=== PATIENT | female | born 1995 | race African-American/Black ===

== ENCOUNTER 2020-10-24 19:11 | Emergency (ER) | payer OTHER, BC ==
[2020-10-24 19:24] VITALS: RESP 18; TEMP 99.2
--- NOTE | 2020-10-24 19:55 | ED ---
Back Pain HPI - General Chief Complaint: Back Pain/Injury Stated Complaint: [facility] - Lower back injury Time Seen by Provider: 10/24/20 19:27 Source: patient, RN notes reviewed Mode of arrival: ambulatory Limitations: no limitations - History of Present Illness Initial Comments: This a 25-year-old female presents emergency Department chief complaint low back pain. Patient states that she was at work yesterday caught her foot in the storm drain states that she pulled, twist her back and states that she had increased pain. Patient does admit that she's had rods and surgery on her back secondary to scoliosis. Patient states she has pain rates her left leg. Denies any bowel bladder incontinence or retention or saddle anesthesia. No lower shunted paresthesias. Patient does admit that she has some dysuria with no other associated symptoms no fevers or chills denies any chance . - Related Data Previous Rx's Medication Instructions Recorded Cephalexin [Keflex] 500 mg PO Q8HR #21 cap 10/24/20 Cyclobenzaprine [Flexeril] 10 mg PO TID PRN #15 tab 10/24/20 Ibuprofen [Motrin] 600 mg PO Q8HR PRN #20 tab 10/24/20 Allergies Allergy/AdvReac Type Severity Reaction Status Date / Time No Known Allergies Allergy Verified 10/24/20 19:22 Review of Systems ROS Statement: Those systems with pertinent positive or pertinent negative responses have been documented in the HPI. ROS Other: All systems not noted in ROS Statement are negative. Past Medical History Past Medical History: No Reported History History of Any Multi-Drug Resistant Organisms: None Reported Additional Past Surgical History / Comment(s): back surgery for scoliosis, Past Psychological History: No Psychological Hx Reported Smoking Status: Never smoker Past Alcohol Use History: None Reported Past Drug Use History: None Reported General Exam Limitations: no limitations General appearance: alert, in no apparent distress Head exam: Present: atraumatic, normocephalic, normal inspection Eye exam: Present: normal appearance, PERRL, EOMI. Absent: scleral icterus, conjunctival injection, periorbital swelling ENT exam: Present: normal exam, normal oropharynx, mucous membranes moist, TM's normal bilaterally Neck exam: Present: normal inspection, full ROM. Absent: tenderness, meningismus, lymphadenopathy Respiratory exam: Present: normal lung sounds bilaterally. Absent: respiratory distress, wheezes, rales, rhonchi, stridor Cardiovascular Exam: Present: regular rate, normal rhythm, normal heart sounds. Absent: systolic murmur, diastolic murmur, rubs, gallop, clicks GI/Abdominal exam: Present: soft, normal bowel sounds. Absent: distended, tenderness, guarding, rebound, rigid Extremities exam: Present: normal inspection, full ROM, normal capillary refill, other (Lower extremity strength equal bilaterally neurovascular intact equal color and equal warmth). Absent: tenderness, pedal edema, joint swelling, calf tenderness Back exam: Present: full ROM, tenderness, paraspinal tenderness. Absent: vertebral tenderness Neurological exam: Present: alert, oriented X3, CN II-XII intact, reflexes normal. Absent: motor sensory deficit Skin exam: Present: warm, dry, intact, normal color. Absent: rash Course Vital Signs 10/24/20 19:19 Temperature 99.2 F Pulse Rate 85 Respiratory 18 Rate Blood Pressure 119/75 O2 Sat by Pulse 98 Oximetry Medical Decision Making - Medical Decision Making X-ray shows no acute findings. Patient has chronic changes related to surgery urinalysis shows evidence of urinary tract infection she is symptomatic. Patient we discharged stable condition return parameters were discussed. Patient has no red flag symptoms. - Lab Data Lab Results 10/24/20 10/24/20 Range/Units 19:47 19:47 Urine Color Yellow Urine Appearance Clear (Clear) Urine pH 6.5 (5.0-8.0) Ur Specific [place] 1.023 (1.001-1.035) Urine Protein Trace H (Negative) Urine Glucose (UA) Negative (Negative) Urine Ketones Negative (Negative) Urine Blood Small H (Negative) Urine Nitrite Negative (Negative) Urine Bilirubin Negative (Negative) Urine Urobilinogen <2.0 (<2.0) mg/dL Ur Leukocyte Esterase Large H (Negative) Urine RBC 9 H (0-5) /hpf Urine WBC 18 H (0-5) /hpf Ur Squamous Epith Cells 2 (0-4) /hpf Urine Bacteria Rare H (None) /hpf Urine Mucus Rare H (None) /hpf Urine HCG, Qual Not Detected (Not Detectd) Disposition Clinical Impression: Strain of lumbar region, UTI (urinary tract infection) Disposition: HOME SELF-CARE Condition: Stable Instructions (If sedation given, give patient instructions): Acute Low Back Pain (ED) Additional Instructions: Please return to the Emergency Department if symptoms worsen or any other concerns. Prescriptions: Cyclobenzaprine [Flexeril] 10 mg PO TID PRN #15 tab PRN Reason: Muscle Spasm Cephalexin [Keflex] 500 mg PO Q8HR #21 cap Ibuprofen [Motrin] 600 mg PO Q8HR PRN #20 tab PRN Reason: Pain Is patient prescribed a controlled substance at d/c from ED?: No Referrals: Luba Franco MD [Primary Care Provider] - 1-2 days Time of Disposition: 20:47
[2020-10-24 19:59] LABS: Appearance,Urine Clear (Clear); Bacteria,Urine Rare /hpf; Bilirubin,Urine Negative (Negative); Blood,Urine Small (Negative); Color,Urine Yellow; Glucose,Urine (UA) Negative (Negative); Ketones,Urine Negative (Negative); Leukocyte Esterase,Urine Large (Negative); Mucus,Urine Rare /hpf; Nitrite,Urine Negative (Negative); PH, Urine 6.5 (5.0-8.0); Protein,Urine Trace (Negative); RBC,Urine 9 /hpf (0-5); Specific Gravity,Urine 1.023 (1.001-1.035); Squamous Epithelial Cell,Urine 2 /hpf (0-4); Urobilinogen,Urine <2.0 mg/dL (<2.0); WBC,Urine 18 /hpf (0-5)
--- NOTE | 2020-10-24 20:27 | XR ---
EXAMINATION TYPE: XR lumbar spine 2 or 3V DATE OF EXAM: 10/24/2020 CLINICAL HISTORY: Low back pain after injury yesterday. History of scoliosis surgery 2001. TECHNIQUE: Frontal and lateral images of the lumbar spine are obtained. COMPARISON: Prior scoliosis survey December 11, 2010 FINDINGS: There are 5 lumbar type vertebral bodies redemonstrated. Improved alignment on current shiraz dy. Partial visualization of posterior interpedicular rods and screws involving T12-L3 vertebra infer iorly. Mild to moderate disc space narrowing at these levels. Vertebral body heights and disc space h eights are maintained at L3 level inferiorly. No acute fracture or dislocation. IMPRESSION: No acute displaced fracture clearly seen in the lumbar spine.
[2020-10-24 21:02] VITALS: BP 121/79; PULSE 75
== END 2020-10-24 21:02 | disposition home or self-care (01) ==
LOC: EC 19:11
DX: S39.012A Strain of muscle, fascia and tendon of lower back, initial encounter (principal); N39.0 Urinary tract infection, site not specified; X58.XXXA Exposure to other specified factors, initial encounter
CPT/HCPCS: 72100; 81001; 81025; 87086; 99283

== ENCOUNTER → 2020-12-15 | Outpatient (CLI) | payer BC ==
[2020-12-15 23:31] LABS: Basophils # (A) 0.02 X 10*3/uL (0.00-0.10); Basophils % (A) 0.5 %; Eosinophils # (A) 0.13 X 10*3/uL (0.04-0.35); Eosinophils % (A) 3.4 %; HCT 37.4 % (37.2-46.3); Lymphocytes # (A) 1.45 X 10*3/uL (0.90-5.00); Lymphocytes % (A) 38.1 %; MCH 31.4 pg (27.0-32.0); MCHC 32.1 g/dL (32.0-37.0); MCV 97.9 fL (80.0-97.0); Monocytes # (A) 0.54 X 10*3/uL (0.20-1.00); Monocytes % (A) 14.2 %; Neutrophils # (A) 1.67 X 10*3/uL (1.80-7.70); Neutrophils % (A) 43.8 %; Platelet Count 298 X 10*3/uL (140-440); RBC 3.82 X 10*6/uL (4.10-5.20); RDW 14.8 % (11.5-14.5); WBC 3.81 X 10*3/uL (4.50-10.00)
[2020-12-16 02:39] LABS: African American GFR (CKD) 91.3 (60.0-200.0); Albumin 4.2 g/dL (3.80-4.90); Albumin/Globulin Ratio 1.35 (1.60-3.17); Anion Gap 6.9 mmol/L (4.00-12.00); Calcium 9.1 mg/dL (8.7-10.3); Carbon Dioxide 27.1 mmol/L (21.6-31.8); Chol/HDL Ratio 3.51; Globulin 3.1 g/dL (1.6-3.3); LDL Cholesterol,Calculated 112.6 mg/dL (0.0-131.0); Non-African American GFR(CKD) 78.8 (60.0-200.0); Potassium 4.2 mmol/L (3.5-5.5); Total Bilirubin 0.3 mg/dL (0.3-1.2); Total Protein 7.3 g/dL (6.2-8.2); VLDL Calculation 10.4 mg/dL (5.00-40.00)
== END | disposition home or self-care (01) ==
LOC: LABWHC1 11:08
PROVIDERS: ATTEND Nurse Practitioner Family
DX: Z13.220 Encounter for screening for lipoid disorders (principal); Z13.228 Encounter for screening for other metabolic disorders; Z13.9 Encounter for screening, unspecified; E55.9 Vitamin D deficiency, unspecified; R53.83 Other fatigue
CPT/HCPCS: 36415; 80053; 80061; 82306; 84443; 85025

== ENCOUNTER 2020-12-25 21:04 | Emergency (ER) | payer BC ==
[2020-12-25] MEDS ORDERED: ONDANSETRON ODT 4 MG TAB PO STA (21:58)
[2020-12-25] MEDS ORDERED: ONDANSETRON 4 MG ODT STARTER PACK 2 TAB BTL PO STA (21:58)
--- NOTE | 2020-12-25 22:17 | ED ---
Nausea/Vomiting/Diarrhea HPI - General Chief complaint: Nausea/Vomiting/Diarrhea Stated complaint: Nausea Time Seen by Provider: 12/25/20 21:26 Source: patient Mode of arrival: ambulatory Limitations: no limitations - Related Data Previous Rx's Medication Instructions Recorded Cephalexin [Keflex] 500 mg PO Q8HR #21 cap 10/24/20 Cyclobenzaprine [Flexeril] 10 mg PO TID PRN #15 tab 10/24/20 Ibuprofen [Motrin] 600 mg PO Q8HR PRN #20 tab 10/24/20 Allergies Allergy/AdvReac Type Severity Reaction Status Date / Time No Known Allergies Allergy Verified 12/25/20 21:16 Review of Systems ROS Statement: Those systems with pertinent positive or pertinent negative responses have been documented in the HPI. ROS Other: All systems not noted in ROS Statement are negative. Past Medical History Past Medical History: No Reported History History of Any Multi-Drug Resistant Organisms: None Reported Past Surgical History: Back Surgery Additional Past Surgical History / Comment(s): back surgery for scoliosis, Past Psychological History: Anxiety Smoking Status: Never smoker Past Alcohol Use History: None Reported Past Drug Use History: Marijuana General Exam Limitations: no limitations Course Vital Signs 12/25/20 21:16 Temperature 98.0 F Pulse Rate 80 Respiratory 18 Rate Blood Pressure 110/65 O2 Sat by Pulse 100 Oximetry Medical Decision Making - Lab Data Lab Results 12/25/20 12/25/20 Range/Units 22:05 22:05 Urine Color Yellow Urine Appearance Cloudy H (Clear) Urine pH 6.0 (5.0-8.0) Ur Specific [place] 1.025 (1.001-1.035) Urine Protein Negative (Negative) Urine Glucose (UA) Negative (Negative) Urine Ketones Negative (Negative) Urine Blood Negative (Negative) Urine Nitrite Negative (Negative) Urine Bilirubin Negative (Negative) Urine Urobilinogen <2.0 (<2.0) mg/dL Ur Leukocyte Esterase Small H (Negative) Urine RBC 1 (0-5) /hpf Urine WBC 2 (0-5) /hpf Ur Squamous Epith Cells 10 H (0-4) /hpf Urine Bacteria Rare H (None) /hpf Urine Mucus Rare H (None) /hpf Urine HCG, Qual Not Detected (Not Detectd) Disposition Clinical Impression: Food poisoning, Nausea & vomiting Disposition: HOME SELF-CARE Condition: Good Instructions (If sedation given, give patient instructions): Acute Nausea and Vomiting (ED) Is patient prescribed a controlled substance at d/c from ED?: No Referrals: Luba Franco MD [Primary Care Provider] - 1-2 days
[2020-12-25 22:27] LABS: Appearance,Urine Cloudy (Clear); Bacteria,Urine Rare /hpf; Bilirubin,Urine Negative (Negative); Blood,Urine Negative (Negative); Color,Urine Yellow; Glucose,Urine (UA) Negative (Negative); Ketones,Urine Negative (Negative); Leukocyte Esterase,Urine Small (Negative); Mucus,Urine Rare /hpf; Nitrite,Urine Negative (Negative); Protein,Urine Negative (Negative); RBC,Urine 1 /hpf (0-5); Specific Gravity,Urine 1.025 (1.001-1.035); Squamous Epithelial Cell,Urine 10 /hpf (0-4); Urobilinogen,Urine <2.0 mg/dL (<2.0); WBC,Urine 2 /hpf (0-5)
[2020-12-25] MEDS ORDERED: MAG HYDROX/AL HYDROX/SIMETH 30 ML, HYOSCYAMINE ELIXIR 10 ML PO STA ×2 (22:30)
--- NOTE | 2020-12-25 22:35 | XR ---
EXAMINATION TYPE: XR KUB DATE OF EXAM: 12/25/2020 COMPARISON: NONE HISTORY: Nausea and vomiting TECHNIQUE: 2 views upright FINDINGS: There is no evidence of intestinal obstruction or pneumoperitoneum. Fecal pattern is normal . There are no pathologic calcifications. Lung bases are clear. IMPRESSION: Nonacute abdomen. Multilevel fusion surgery noted in the thoracic and lumbar spine.
[2020-12-25 22:46] VITALS: BP 129/69; PULSE 78; RESP 20; TEMP 97.7
== END 2020-12-25 22:48 | disposition home or self-care (01) ==
LOC: EC 21:04
DX: A05.9 Bacterial foodborne intoxication, unspecified (principal); F12.90 Cannabis use, unspecified, uncomplicated
CPT/HCPCS: 81001; 81025; 74018; 99284; S0119

== ENCOUNTER 2021-01-10 19:08 | Emergency (ER) | payer BC ==
[2021-01-10 19:15] VITALS: BP 130/85; PULSE 84; RESP 18; TEMP 97.8
--- NOTE | 2021-01-10 20:00 | XR ---
EXAMINATION TYPE: XR chest 2V DATE OF EXAM: 01/10/2021 COMPARISON: NONE HISTORY: Cough TECHNIQUE: 2 views FINDINGS: Heart and mediastinum are normal. Lungs are clear. Costophrenic angles are clear. There are no hilar masses. There are spinal rods stabilizing the thoracic and lumbar spine. IMPRESSION: No active cardiopulmonary disease. Normal heart.
--- NOTE | 2021-01-10 20:19 | ED ---
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 He denies any phlegm production or dysuria. Patient states her last menstrual period started on Friday which was 3 days ago. She also is on control pills. MD Complaint: sore throat, nasal congestion, sinus pain - Related Data Previous Rx's Medication Instructions Recorded Cephalexin [Keflex] 500 mg PO Q8HR #21 cap 10/24/20 Cyclobenzaprine [Flexeril] 10 mg PO TID PRN #15 tab 10/24/20 Ibuprofen [Motrin] 600 mg PO Q8HR PRN #20 tab 10/24/20 Amoxic-Pot Clav 875-125Mg 1 tab PO BID 1 Days #20 tab 01/10/21 [Augmentin 875-125] Allergies Allergy/AdvReac Type Severity Reaction Status Date / Time No Known Allergies Allergy Verified 01/10/21 19:15 Review of Systems ROS Statement: Those systems with pertinent positive or pertinent negative responses have been documented in the HPI. ROS Other: All systems not noted in ROS Statement are negative. Past Medical History Past Medical History: No Reported History History of Any Multi-Drug Resistant Organisms: None Reported Past Surgical History: Back Surgery Additional Past Surgical History / Comment(s): back surgery for scoliosis, Past Psychological History: Anxiety Smoking Status: Never smoker Past Alcohol Use History: None Reported Past Drug Use History: Marijuana General Exam - General Exam Comments Initial Comments: This is a well-developed well-nourished awake alert oriented 3 female Limitations: no limitations General appearance: alert, in no apparent distress Head exam: Present: atraumatic, normocephalic, normal inspection Eye exam: Present: normal appearance, PERRL, EOMI. Absent: scleral icterus, conjunctival injection, periorbital swelling ENT exam: Present: mucous membranes moist, other Neck exam: Present: normal inspection, lymphadenopathy (Some mild tender lymphadenopathy). Absent: tenderness, meningismus Respiratory exam: Present: normal lung sounds bilaterally. Absent: respiratory distress, wheezes, rales, rhonchi, stridor Cardiovascular Exam: Present: regular rate, normal rhythm, normal heart sounds. Absent: systolic murmur, diastolic murmur, rubs, gallop, clicks GI/Abdominal exam: Absent: distended, tenderness, guarding, rebound, rigid Extremities exam: Present: normal inspection, full ROM, normal capillary refill. Absent: tenderness, pedal edema, joint swelling, calf tenderness Back exam: Present: normal inspection Neurological exam: Present: alert, oriented X3, CN II-XII intact Psychiatric exam: Present: normal affect, normal mood Skin exam: Present: warm, dry, intact, normal color. Absent: rash Course Vital Signs 01/10/21 19:10 Temperature 97.8 F Pulse Rate 84 Respiratory 18 Rate Blood Pressure 130/85 O2 Sat by Pulse 100 Oximetry Medical Decision Making - Medical Decision Making I did discuss findings the patient COVID-19 test is negative. Patient's presentation is consistent with a frontal sinusitis. - Lab Data Lab Results 01/10/21 Range/Units 19:49 Coronavirus (PCR) Not Detected (Not Detectd) - Radiology Data Radiology results: report reviewed (I did review the imaging and report no acute findings.), image reviewed Disposition Clinical Impression: Acute rhinosinusitis Disposition: HOME SELF-CARE Condition: Good Instructions (If sedation given, give patient instructions): Rhinosinusitis (ED) Prescriptions: Amoxic-Pot Clav 875-125Mg [Augmentin 875-125] 1 tab PO BID 1 Days #20 tab Is patient prescribed a controlled substance at d/c from ED?: No Referrals: Luba Franco MD [Primary Care Provider] - 1-2 days
== END 2021-01-10 20:44 | disposition home or self-care (01) ==
LOC: EC 19:08
DX: J01.90 Acute sinusitis, unspecified (principal); J02.9 Acute pharyngitis, unspecified; F12.90 Cannabis use, unspecified, uncomplicated; Z20.822 Contact with and (suspected) exposure to COVID-19
CPT/HCPCS: 71046; 87635; 99283

== ENCOUNTER 2021-09-10 21:48 | Emergency (ER) | payer BC ==
[2021-09-10 21:55] VITALS: BP 135/79; PULSE 98; RESP 18; TEMP 99.4
[2021-09-10] MEDS ORDERED: ACETAMINOPHEN TAB 500 MG TAB PO STA (22:21)
[2021-09-10] MEDS ORDERED: IBUPROFEN 600 MG TAB PO STA (22:22)
[2021-09-10] MEDS ORDERED: diphenhydrAMINE 25 MG CAP PO STA (22:22)
--- NOTE | 2021-09-10 22:55 | CT ---
EXAMINATION TYPE: CT brain wo con DATE OF EXAM: 09/10/2021 COMPARISON: None HISTORY: left side headaches x3 days CT DLP: 1017.4 mGycm Automated exposure control for dose reduction was used. Images of the brain obtained without contrast. Ventricles of normal size. There is no mass effect or midline shift. There is no sign of intracranial hemorrhage. The calvarium is intact. IMPRESSION: Negative unenhanced head CT scan.
--- NOTE | 2021-09-10 23:06 | ED ---
Headache HPI - General Chief Complaint: Headache Stated Complaint: Left side head pain, Nose bleeds Time Seen by Provider: 09/10/21 22:07 Mode of arrival: ambulatory Limitations: no limitations - History of Present Illness Initial Comments: 26-year-old female patient presents to the emergency department today for evaluation of left-sided headache. States the pain is around her eyes and into the left side of her head. She denies any blurred or double vision. Denies any recent head injury. States she does feel somewhat nauseated. She reports light sensitivity. Denies any vomiting, numbness, tingling, weakness or extremities. Does have history of headaches but states this is different. Patient is very anxious, crying, is concerned she may have a brain tumor. She denies taking any medication for her symptoms. Denies chance of . - Related Data Previous Rx's Medication Instructions Recorded Cephalexin [Keflex] 500 mg PO Q8HR #21 cap 10/24/20 Cyclobenzaprine [Flexeril] 10 mg PO TID PRN #15 tab 10/24/20 Ibuprofen [Motrin] 600 mg PO Q8HR PRN #20 tab 10/24/20 Amoxic-Pot Clav 875-125Mg 1 tab PO BID 1 Days #20 tab 01/10/21 [Augmentin 875-125] Allergies Allergy/AdvReac Type Severity Reaction Status Date / Time No Known Allergies Allergy Verified 09/10/21 21:55 Review of Systems ROS Statement: Those systems with pertinent positive or pertinent negative responses have been documented in the HPI. ROS Other: All systems not noted in ROS Statement are negative. Past Medical History Past Medical History: No Reported History History of Any Multi-Drug Resistant Organisms: None Reported Past Surgical History: Back Surgery Additional Past Surgical History / Comment(s): back surgery for scoliosis, Past Psychological History: Anxiety Smoking Status: Never smoker Past Alcohol Use History: None Reported Past Drug Use History: Marijuana General Exam Limitations: no limitations General appearance: alert, in no apparent distress, other (This is a well- developed, well-nourished adult female in no acute distress.) Eye exam: Present: normal appearance, PERRL, EOMI. Absent: scleral icterus, conjunctival injection, nystagmus, periorbital swelling ENT exam: Present: normal exam, normal oropharynx, mucous membranes moist Respiratory exam: Present: normal lung sounds bilaterally. Absent: respiratory distress, wheezes, rales, rhonchi, stridor Cardiovascular Exam: Present: regular rate, normal rhythm, normal heart sounds. Absent: systolic murmur, diastolic murmur, rubs, gallop, clicks GI/Abdominal exam: Present: soft, normal bowel sounds. Absent: distended, tenderness, guarding, rebound, rigid Neurological exam: Present: alert, oriented X3, CN II-XII intact, normal gait, other (Rapid alternating movements intact) Expanded Speech: Present: fluid speech Cranial nerves: EOM's Intact: Normal, Tongue Deviation: Normal, Nystagmus: Normal Cerebellar function: Finger to Nose: Normal Motor strength exam: RUE: 5, LUE: 5, RLE: 5, LLE: 5 Eye Response: (4) open spontaneously Motor Response: (6) obeys commands Verbal Response: (5) oriented [place] Total: 15 Course Vital Signs 09/10/21 21:52 Temperature 99.4 F Pulse Rate 98 Respiratory 18 Rate Blood Pressure 135/79 O2 Sat by Pulse 98 Oximetry Medical Decision Making - Medical Decision Making 26-year-old female patient presented to the emergency department today for evaluation of left-sided headache. Reported associated right sensitivity and nausea. Physical examination is unremarkable. She is neurologically intact with no focal deficits. She is given Tylenol and Motrin. She is very anxious and crying she was concerned she may have a brain tumor sided send her for CT of the brain which was negative. She was reassured. Upon reevaluation she is resting completely states her symptoms are improved. She'll be discharged up with her primary care physician for recheck in 1-2 days. She is instructed to keep a headache diary so they may begin her on medications at this persist. Return parameters discussed in detail. She verbalizes understanding and agrees with this plan. My attending is Dr. Wise. Disposition Clinical Impression: Headache Disposition: HOME SELF-CARE Condition: Good Instructions (If sedation given, give patient instructions): Acute Headache (ED) Additional Instructions: Rest. Increase fluids. Follow-up with your primary care physician for recheck in 1-2 days. Keep a headache diary including pain location, time of onset, time of resolution, other symptoms present, medications used and whether they were effective. Return to the emergency department for any new, worsening, or concerning symptoms. Is patient prescribed a controlled substance at d/c from ED?: No Referrals: Luba Franco MD [Primary Care Provider] - 1-2 days Time of Disposition: 23:06
== END 2021-09-10 23:30 | disposition home or self-care (01) ==
LOC: EC 21:48
DX: R51.9 Headache, unspecified (principal); F41.9 Anxiety disorder, unspecified; F12.90 Cannabis use, unspecified, uncomplicated
CPT/HCPCS: 70450; 99284

== ENCOUNTER 2021-10-29 15:19 | Emergency (ER) | payer BC ==
[2021-10-29 16:33] VITALS: BP 123/73; PULSE 82; RESP 18; TEMP 97.8
[2021-10-29] MEDS ORDERED: METOCLOPRAMIDE 5 MG/ML 2 ML VIAL IM STA (18:27)
[2021-10-29] MEDS ORDERED: ACETAMINOPHEN TAB 500 MG TAB PO STA (18:27)
[2021-10-29] MEDS ORDERED: KETOROLAC 15 MG/ML 1 ML VIAL IM STA (18:27)
[2021-10-29] MEDS ORDERED: diphenhydrAMINE 50 MG/ML 1 ML VIAL IM STA (18:27)
--- NOTE | 2021-10-29 18:35 | ED ---
Headache HPI - General Chief Complaint: Headache Stated Complaint: migraine Time Seen by Provider: 10/29/21 18:15 Source: RN notes reviewed Mode of arrival: ambulatory Limitations: no limitations - History of Present Illness Initial Comments: This is a pleasant 26-year-old female with a history migraine headaches. She presents to the emergency department today complaining of a headache which started last night. She stated it started gradually, mostly affects the left temporal area. She states this is consistent with what she has had in the past. Patient states she had migraines for several years and they waned but now they are getting more frequent again. Patient denying any neurological impairment. No dizziness. No vision or hearing disturbance. No numbness or tingling. No gait disturbance. States that this headache is very consistent with what she felt the past. She did try Tylenol at work had some nausea and then took ibuprofen and vomited. Patient denies chance of . no fever or chills, no changes in vision or hearing, no sore throat or difficulty with speech, no neck pain, no chest pain or shortness of breath, no abdominal pain,no changes in urination or bowel movements, no numbness or tingling, no extremity pain, no skin rashes or lesions. MD Complaint: headache - Related Data Previous Rx's Medication Instructions Recorded Cephalexin [Keflex] 500 mg PO Q8HR #21 cap 10/24/20 Cyclobenzaprine [Flexeril] 10 mg PO TID PRN #15 tab 10/24/20 Ibuprofen [Motrin] 600 mg PO Q8HR PRN #20 tab 10/24/20 Amoxic-Pot Clav 875-125Mg 1 tab PO BID 1 Days #20 tab 01/10/21 [Augmentin 875-125] Allergies Allergy/AdvReac Type Severity Reaction Status Date / Time No Known Allergies Allergy Verified 10/29/21 16:31 Review of Systems ROS Statement: Those systems with pertinent positive or pertinent negative responses have been documented in the HPI. ROS Other: All systems not noted in ROS Statement are negative. Past Medical History Past Medical History: No Reported History History of Any Multi-Drug Resistant Organisms: None Reported Past Surgical History: Back Surgery Additional Past Surgical History / Comment(s): back surgery for scoliosis, Past Psychological History: Anxiety Smoking Status: Never smoker Past Alcohol Use History: None Reported Past Drug Use History: Marijuana General Exam Limitations: no limitations General appearance: alert, in no apparent distress Head exam: Present: atraumatic, normocephalic, normal inspection Eye exam: Present: normal appearance, PERRL, EOMI. Absent: scleral icterus, conjunctival injection, periorbital swelling ENT exam: Present: normal exam, mucous membranes moist Neck exam: Present: normal inspection, full ROM. Absent: tenderness, meningismus, lymphadenopathy Respiratory exam: Present: normal lung sounds bilaterally. Absent: respiratory distress, wheezes, rales, rhonchi, stridor Cardiovascular Exam: Present: regular rate, normal rhythm, normal heart sounds. Absent: systolic murmur, diastolic murmur, rubs, gallop, clicks GI/Abdominal exam: Present: soft, normal bowel sounds. Absent: distended, tenderness, guarding, rebound, rigid Extremities exam: Present: normal inspection, full ROM, normal capillary refill. Absent: tenderness, pedal edema, joint swelling, calf tenderness Back exam: Present: normal inspection Neurological exam: Present: alert, oriented X3, CN II-XII intact, normal gait, motor sensory deficit, reflexes normal, other (Alert and oriented 4). Absent: altered, abnormal gait Expanded Patient oriented to: Present: person, place, time Speech: Present: fluid speech Cranial nerves: EOM's Intact: Normal, Gag Reflex: Normal, Tongue Deviation: Normal, Facial Sensation: Normal, Facial Palsy with Forehead Movement: Normal, Facial Palsy without Forehead Movement: Normal Cerebellar function: Finger to Nose: Normal, [place]: Normal Psychiatric exam: Present: normal affect, normal mood Skin exam: Present: warm, dry, intact, normal color. Absent: rash Course Vital Signs 10/29/21 16:31 Temperature 97.8 F Pulse Rate 82 Respiratory 18 Rate Blood Pressure 123/73 O2 Sat by Pulse 100 Oximetry Medical Decision Making - Medical Decision Making Patient presents with what is a typical migraine headache for her. No neurologic impairment. 10 in intensity. No blood face consistent with other concerning headaches. We will treat with ketorolac, metoclopramide, diphenhydramine, and acetaminophen. Patient given a work note. Patient was told to return to the ER for any signs or symptoms worsen. Told to return immediately if any other problems arise. All questions answered. Treatment plan discussed. Patient in agreement Every effort has been made to ensure accuracy of this dictation. However, due to the limitations of electronic medical records and dictation devices, errors in charting still occur. Patient reevaluated prior to discharge and is in no distress. Neurologically intact. Alert and oriented 4. Vital signs stable, patient afebrile. Disposition Clinical Impression: Migraine headache without aura Disposition: HOME SELF-CARE Condition: Stable Instructions (If sedation given, give patient instructions): Acute Headache (ED) Additional Instructions: No headache, no fever or chills, no changes in vision or hearing, no sore throat or difficulty with speech, no neck pain, no chest pain or shortness of breath, no abdominal pain, no nausea or vomiting, no changes in urination or bowel movements, no numbness or tingling, no extremity pain, no skin rashes or lesions. Is patient prescribed a controlled substance at d/c from ED?: No Referrals: Ofelia Donohue MD [Primary Care Provider] - 1-2 days Time of Disposition: 19:05
[2021-10-29] MEDS ORDERED: ONDANSETRON ODT 4 MG TAB PO STA (18:54)
[2021-10-29] MEDS ORDERED: diphenhydrAMINE 50 MG CAP PO STA (18:54)
== END 2021-10-29 19:28 | disposition home or self-care (01) ==
LOC: EC 15:19
DX: G43.009 Migraine without aura, not intractable, without status migrainosus (principal); F41.9 Anxiety disorder, unspecified; F12.90 Cannabis use, unspecified, uncomplicated
CPT/HCPCS: 99283; 96372; J1885

== ENCOUNTER → 2022-01-09 | Outpatient (CLI) | payer OTHER ==
--- NOTE | 2022-01-09 16:46 | XR ---
EXAMINATION TYPE: XR lumbar spine 2 or 3V DATE OF EXAM: 01/09/2022 COMPARISON: 10/24/2020 HISTORY: Back pain. Slipping on wet floor. TECHNIQUE: 3 views FINDINGS: There is multilevel posterior fusion surgery in the lower thoracic and upper lumbar spine. Normal alignment. No compression fracture. No significant disc space narrowing. Sacroiliac joints are intact. IMPRESSION: Multilevel posterior fusion surgery. No fractures seen. No adverse change compared to old exam.
--- NOTE | 2022-01-09 16:48 | XR ---
EXAMINATION TYPE: XR thoracic spine 2V DATE OF EXAM: 01/09/2022 COMPARISON: 01/10/2021 HISTORY: Back pain TECHNIQUE: 3 views FINDINGS: There is multilevel thoracic and lumbar spine fusion surgery. No significant compression de formity seen. There is no paraspinal mass. There are posterior rods and screws fusing the spine from approximately T3-L3 vertebra. Lungs are clear of infiltrate. Heart appears normal. IMPRESSION: Multilevel fusion surgery. No fracture seen. No adverse change compared to old exam.
== END | disposition home or self-care (01) ==
LOC: RADXRMAIN 16:09
PROVIDERS: ATTEND Emergency Medicine
DX: Z98.1 Arthrodesis status (principal)
CPT/HCPCS: 72070; 72100

== ENCOUNTER → 2022-03-09 | Outpatient (CLI) | payer BC, OTHER ==
--- NOTE | 2022-03-09 20:11 | MR ---
EXAMINATION TYPE: MR brain wo/w con DATE OF EXAM: 03/09/2022 COMPARISON: CT brain 09/10/2021 HISTORY: Left-sided headache, pseudopapilledema. TECHNIQUE: Multiplanar, multisequence images of the brain and brainstem is performed without and with IV contras t, utilizing 7.5 mL intravenous Gadavist . FINDINGS: Diffusion weighted images demonstrate no evidence of a recent infarct or other diffusion ab normality. There is no extra-axial fluid collection or significant white matter signal abnormality. The ventricular system and cisternal spaces are normal in size and appearance. The brain volume is age appropriate. Midline structures demonstrate normal morphology. The craniocervical junction appears within normal limits. Post contrast images demonstrate no abnormal enhancement. The dural venous sinuses appear pat ent. The visualized sinuses are clear and the globes are intact. No evidence of posterior flattening of the globe, protrusion the optic nerve or widening of the optic nerve sheath. No tortuosity of the optic nerve. No hyperintensity of the optic nerve on diffusion-weighted imaging. IMPRESSION: Normal MRI of the brain.
== END | disposition home or self-care (01) ==
LOC: RADMRIMAIN 13:57
PROVIDERS: ATTEND Ophthalmology
DX: H47.333 Pseudopapilledema of optic disc, bilateral (principal)
CPT/HCPCS: 70553; A9585